=== PATIENT | male | born 2000 | race Caucasian/White ===

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

== ENCOUNTER 2018-02-04 07:12 | Emergency (ER) | payer OTHER ==
[~2018-02-04] VITALS: Ht 154.9 cm; Wt 58.1 kg
[~2018-02-04 07:12] MED LIST: PREDNISONE50 MG PO; SERTRALINE HYDR25 MG PO
[2018-02-04] MEDS ORDERED: AMOXICILLIN500 M2 PO (07:35)
[2018-05-07] MEDS ORDERED: AMOXICILLIN500 M2 PO (03:05)
== END 2018-02-04 07:40 | disposition home or self-care (01) ==
LOC: ED 07:12
DX: J01.90 Acute sinusitis, unspecified (principal); J02.9 Acute pharyngitis, unspecified